=== PATIENT | female | born 1950 | race Two or more races ===

== ENCOUNTER → 2017-06-29 17:12 | Outpatient (CLI) | payer OTHER | END | disposition home or self-care (01) | LOC: RAD 17:12 | DX: M51.06 Intervertebral disc disorders with myelopathy, lumbar region (principal) ==

== ENCOUNTER 2018-04-07 10:07 | Outpatient (CLI) | payer OTHER | END 2018-04-07 15:41 | disposition home or self-care (01) | LOC: RAD 10:07 | DX: M51.06 Intervertebral disc disorders with myelopathy, lumbar region (principal) ==

== ENCOUNTER 2018-10-04 09:00 | Outpatient (CLI) | payer OTHER | END 2018-10-04 09:42 | disposition home or self-care (01) | LOC: RAD 09:00 | DX: M54.5 Low back pain (principal) ==

== ENCOUNTER 2018-10-19 10:18 | Outpatient (CLI) | payer OTHER | END 2018-10-19 11:04 | disposition home or self-care (01) | LOC: TOM 10:18 | DX: R10.84 Generalized abdominal pain (principal) ==

== ENCOUNTER 2019-03-31 11:47 | Outpatient (CLI) | payer OTHER | END 2019-03-31 11:50 | disposition home or self-care (01) | LOC: RAD 11:47 | DX: I10 Essential (primary) hypertension (principal) ==

== ENCOUNTER 2022-09-09 09:23 | Outpatient (CLI) | payer OTHER | END 2022-09-09 09:29 | disposition home or self-care (01) | LOC: RAD 09:23 | PROVIDERS: ATTEND Internal Medicine Nephrology | DX: J18.9 Pneumonia, unspecified organism (principal); I10 Essential (primary) hypertension ==